=== PATIENT | female | born 2005 | race Caucasian/White ===

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

== ENCOUNTER 2024-05-16 09:23 | Outpatient (CLI) | payer BC, SELFPAY | END 2024-05-16 23:59 | disposition home or self-care (01) | LOC: LAB.DROPOF 05-17 09:23 | PROVIDERS: PCP Student in an Organized Health Care Education/Training Program; Visit Provider Student in an Organized Health Care Education/Training Program | DX: J02.9 Acute pharyngitis, unspecified (principal) | CPT/HCPCS: 87070 ==

== ENCOUNTER 2024-09-24 13:30 | Outpatient (CLI) | payer BC, SELFPAY | END 2024-09-24 23:59 | disposition home or self-care (01) | LOC: LAB.DROPOF 09-25 11:02 | PROVIDERS: PCP Student in an Organized Health Care Education/Training Program; Visit Provider Student in an Organized Health Care Education/Training Program | DX: R39.9 Unspecified symptoms and signs involving the genitourinary system (principal) | CPT/HCPCS: 87086; 87088; 87186 ==

== ENCOUNTER 2024-10-23 10:54 | Outpatient (CLI) | payer BC, SELFPAY ==
[2024-10-27 21:07] LABS: Amphetamines IA Negative ng/mL (Cutoff:50); Barbiturates, IA Negative ug/mL (Cutoff:0.1); Benzodiazepines, IA Negative ng/mL (Cutoff:20); Cocaine & Metabolite, IA Negative ng/mL (Cutoff:25); Methadone, IA Negative ng/mL (Cutoff:25); Opiates, IA Negative ng/mL (Cutoff:5); Oxycodones, IA Negative ng/mL (Cutoff:5); Phencyclidine, IA Negative ng/mL (Cutoff:8); Propoxyphene, IA Negative ng/mL (Cutoff:50); THC (Marijauna) Metabolite, IA Negative ng/mL (Cutoff:5)
== END 2024-10-23 23:59 | disposition home or self-care (01) ==
LOC: LAB 10:56
PROVIDERS: PCP Student in an Organized Health Care Education/Training Program; Visit Provider Student in an Organized Health Care Education/Training Program
DX: Z02.83 Encounter for blood-alcohol and blood-drug test (principal)
CPT/HCPCS: 36415; 80307